=== PATIENT | female | born 1990 | race Hispanic/Latino ===

== ENCOUNTER 2021-11-04 14:29 | Emergency (ER) | payer BC ==
[~2021-11-04] VITALS: Ht 149.9 cm; Wt 101.2 kg
[2021-11-04 14:30] VITALS: BP 135/78
[2021-11-04] MEDS ORDERED: LIDOCAINE HCL 1% MDV 50ML VIAL ONE (14:41)
[2021-11-04] MEDS ORDERED: SULF1TAB42 PO (15:13)
[2021-11-04] MEDS ORDERED: CEFTRIAXONE 500MG VIAL IM SCH (15:30)
[2021-11-04] MEDS ORDERED: AZITHROMYCIN 250 MG TABLET PO ONE (15:30)
[2021-11-04 16:19] LABS: APPEARANCE,URINE SL CLOUDY (CLEAR); BILIRUBIN,URINE NEGATIVE (NEGATIVE); COLOR,URINE YELLOW (YELLOW); GLUCOSE, URINE (UA) NEGATIVE (NEGATIVE); KETONES,URINE 5 mg/dL (NEGATIVE); LEUKOCYTE ESTERASE ,URINE MODERATE (NEGATIVE); NITRATE,URINE NEGATIVE (NEGATIVE); OCCULT BLOOD,URINE LARGE (NEGATIVE); PROTEIN,URINE NEGATIVE (NEGATIVE); UROBILINOGEN,URINE 0.2 mg/dL (0.2-1.0)
[2021-11-04 16:21] LABS: HCG,QUAL RESULT NEGATIVE (NEGATIVE)
[2021-11-04 16:32] LABS: BACTERIA,URINE Few /HPF (None Seen); SQUAMOUS EPITHELIAL CELL,UR Few /HPF (0-2)
[2021-11-04 16:33] LABS: MUCUS,URINE Few LPF (None Seen)
== END 2021-11-04 16:49 | disposition home or self-care (01) ==
LOC: EDH 14:29
DX: N89.8 Other specified noninflammatory disorders of vagina (principal); N39.0 Urinary tract infection, site not specified; Z90.89 Acquired absence of other organs; Z98.890 Other specified postprocedural states
CPT/HCPCS: 10060; 81001; 81025; 87088; 87486; 87797; 96372; 99284; J0696; J3490

== ENCOUNTER 2021-11-06 08:22 | Emergency (ER) | payer BC, MEDICAID ==
[~2021-11-06] VITALS: Ht 149.9 cm; Wt 101.2 kg
[~2021-11-06 08:22] MED LIST: SULF1TAB42 PO
[2021-11-06 13:18] VITALS: BP 115/65
== END 2021-11-06 14:11 | disposition home or self-care (01) ==
LOC: EDH 08:22
DX: Z48.01 Encounter for change or removal of surgical wound dressing (principal); Z90.49 Acquired absence of other specified parts of digestive tract
CPT/HCPCS: 99281